=== PATIENT | female | born 1950 | race African-American/Black ===

== ENCOUNTER 2016-09-22 09:44 | Emergency (ER) | payer SELFPAY ==
[2016-09-22 10:10] VITALS: TEMP 99.3; BMI 31.1
--- NOTE | 2016-09-22 10:39 | PDOC ---
History of Present Illness - General Chief Complaint: Injury Stated Complaint: INJURED LEFT SIDE OF HEAD AND RIGHT SHOULDER Time Seen by Provider: 09/22/16 09:49 - History of Present Illness Initial Comments: 09/22/16 11:17 Complaint: Pain right side of face and right and left shoulders History of present illness: Patient was at work, was bending over to open a drawer, was struck in the side of the head by a swinging door above her. She did not fall. There was no loss of consciousness. She sustained no visible injuries but has a mild left-sided headache and stiffness across her shoulders. Review of systems: As noted above, denies loss of consciousness, visual or focal neurologic symptoms, unsteadiness of gait, chest pain, shortness of breath , abdominal pain, nausea, vomiting, diarrhea, neck pain or neck injury, or limited range of motion of the shoulders. Past medical history: Reviewed and noncontributory Social/family history: Reviewed and noncontributory Physical exam: Alert and oriented 3, well-developed well-nourished, no acute distress, cheerful and cooperative. She does not appear to be in any significant pain or other discomfort Afebrile, vital signs normal Head: Atraumatic. There is no sign of bruising, swelling, or edema of the left side of the head or face, there is no point tenderness or deformity of the facial bones PERRLA, fundi benign with sharp disc margins and good central venous pulsations , ENT clear Neck supple without bruit mass or nodes. No tenderness or deformity of the cervical spine. Good range of motion without pain Chest clear. No rib cage or chest wall tenderness or deformity CV regular without murmur rub or gallop Abdomen benign Pelvic her spine deformity or tenderness Extremities without trauma. Visible or palpable. Full range of motion of the shoulders without limitation or pain. Full pulses to the upper extremities and no distal sensory or motor deficits Impression: Minor facial contusion, minor muscle strain Plan: Symptomatic treatment, rest, and follow-up if symptoms persist or new symptoms develop. Fully ambulatory with minimal headache at time of discharge to follow-up as directed. Past History - Past Medical History Allergies/Adverse Reactions: Allergies Allergy/AdvReac Type Severity Reaction Status Date / Time No Known Allergies Allergy Verified 09/22/16 09:47 Home Medications: Ambulatory Orders NK [No Known Home Medication] 09/22/16 Other medical history: VERTIGO - Surgical History Cholecystectomy: Yes - Immunization History Immunization Up to Date: No - Psycho/Social/Smoking Cessation Hx Anxiety: No Suicidal Ideation: No Smoking History: Never smoked Hx Alcohol Use: No Drug/Substance Use Hx: No Substance Use Type: None *Physical Exam - Vital Signs Last Vital Signs Temp Pulse Resp BP Pulse Ox 99.3 F 78 16 167/97 97 09/22/16 09:46 09/22/16 09:46 09/22/16 09:46 09/22/16 09:46 09/22/16 09:46 *DC/Admit/Observation/Transfer Diagnosis at time of Disposition: Facial contusion Qualifiers: Encounter type: initial encounter Qualified Code(s): S00.83XA - Contusion of other part of head, initial encounter - Discharge Dispostion Disposition: HOME Condition at time of disposition: Stable Admit: No - Patient Instructions Printed Discharge Instructions: DI for Contusion Additional Instructions: Blood pressure is a high. It may be the result of you being somewhat anxious because of injury. However, you should have it rechecked in 24-48 hours by your primary physician to make sure it is improvedI If it remains high, it should be further evaluated and treated. - Post Discharge Activity Work/School Note: Back to Work
[2016-09-22 10:42] VITALS: BP 151/103; PULSE 77
[2016-09-22] MEDS ORDERED: ACETAMINOPHEN 325 MG TABLET (FP) ONE (10:48)
[2016-09-22] MEDS: ACETAMINOPHEN 325 MG TABLET (FP) PO ONE (10:49)
== END 2016-09-22 10:49 | disposition home or self-care (01) ==
LOC: FER 09:44
DX: S00.83XA Contusion of other part of head, initial encounter (principal); W20.8XXA Other cause of strike by thrown, projected or falling object, initial encounter; Y93.89 Activity, other specified; Y92.9 Unspecified place or not applicable; Y99.0 Civilian activity done for income or pay
CPT/HCPCS: 99282-25